=== PATIENT | female | born 1975 | race Caucasian/White ===

== ENCOUNTER 2017-07-22 18:56 | Emergency (ER) | payer OTHER, MEDICAID ==
[2017-07-22 20:36] LABS: ADD MAN DIFF? NO
[2017-07-22 20:37] LABS: BASOPHIL # 0.1 10^3/ul (0.0-0.1); BASOPHILS % 0.6 % (0.0-2.0); EOSINOPHILS # 0.3 10^3/ul (0.0-0.5); EOSINOPHILS % 2.1 % (0.0-7.0); HEMATOCRIT 38.4 % (37.0-47.0); HEMOGLOBIN 11.3 g/dl (12.0-16.0); LYMPHOCYTES # 2.7 10^3/ul (0.8-2.9); LYMPHOCYTES % 19.9 % (15.0-51.0); MEAN CORPUSCULAR HEMOGLOBIN 23.5 pg (29.0-33.0); MEAN CORPUSCULAR HGB CONC 29.4 g/dl (32.0-37.0); MEAN CORPUSCULAR VOLUME 79.8 fl (82.0-101.0); MEAN PLATELET VOLUME 11.1 fl (7.4-10.4); MONOCYTES % 7.4 % (0.0-11.0); NEUTROPHIL # 9.4 10^3/ul (1.6-7.5); NEUTROPHILS % 69.6 % (39.0-77.0); PLATELET COUNT 332 10^3/UL (140-415); RED BLOOD COUNT 4.81 10^6/ul (4.20-5.40); RED CELL DISTRIBUTION WIDTH 15.4 % (11.5-14.5)
[2017-07-22 20:37] LABS: WHITE BLOOD COUNT 13.5 10^3/ul (4.8-10.8)
[2017-07-22] MEDS: ACETAMINOPHEN 325 MG TAB PO (20:39)
[2017-07-22 20:51] LABS: ADD UMIC YES; UR ASCORBIC ACID NEGATIVE (NEGATIVE); UR BACTERIA FEW /HPF (NONE SEEN); UR BILIRUBIN (Dip) NEGATIVE (NEGATIVE); UR BLOOD (Dip) 3+ mg/dL (NEGATIVE); UR CLARITY CLOUDY (CLEAR); UR COLOR YELLOW (YELLOW); UR GLUCOSE (Dip) NEGATIVE (NEGATIVE); UR KETONES (Dip) NEGATIVE (NEGATIVE); UR LEUKOCYTE ESTERASE (Dip) 3+ Leu/ul (NEGATIVE); UR MUCUS FEW /HPF (NONE SEEN); UR NITRITE (Dip) NEGATIVE (NEGATIVE); UR RBC > 182 /HPF (0-5); UR SPECIFIC GRAVITY (Dip) 1.019 (1.003-1.030); UR SQUAMOUS EPITHELIAL CELL FEW /HPF (FEW); UR TOTAL PROTEIN (Dip) 2+ mg/dl (NEGATIVE); UR UROBILINOGEN (Dip) 1+ mg/dL (NEGATIVE); UR WBC > 182 /HPF (0-5)
[2017-07-22 20:58] LABS: PROTIME 13.3 Sec (11.9-14.9)
[2017-07-22 20:59] LABS: ALANINE AMINOTRANSFERASE 20 IU/L (13-69); ALBUMIN 3.8 g/dl (3.3-4.9); ALBUMIN/GLOBULIN RATIO 1.11; ALKALINE PHOSPHATASE 62 IU/L (42-121); ANION GAP 16 (8-16); ASPARTATE AMINO TRANSFERASE 12 IU/L (15-46); BILIRUBIN,INDIRECT 0.3 mg/dl (0-1.1); BILIRUBIN,TOTAL 0.3 mg/dl (0.2-1.3); BLOOD UREA NITROGEN 15 mg/dl (7-20); CALCIUM 9.4 mg/dl (8.4-10.2); CARBON DIOXIDE 32 mmol/L (21-31); CHLORIDE 101 mmol/L (97-110); CREATININE 0.78 mg/dl (0.44-1.00); GLUCOSE 140 mg/dl (70-220); LIPASE 56 U/L (23-300); POTASSIUM 3.7 mmol/L (3.5-5.1); SODIUM 145 mmol/L (135-144); TOTAL PROTEIN 7.2 g/dl (6.1-8.1)
[2017-07-22 21:03] LABS: PARTIAL THROMBOPLASTIN TIME 30.2 Sec (25.0-35.0)
[2017-07-22 21:10] LABS: B-TYPE NATRIURETIC PEPTIDE 50 PG/ML (0-125)
[2017-07-22 21:12] LABS: TROPONIN-I < 0.012 ng/ml (0.00-0.12)
[2017-07-22] MEDS: CEFTRIAXONE 1 GM/50 ML (PMX) 50 ML IVPB (21:55)
== END 2017-07-22 22:35 | disposition home or self-care (01) ==
LOC: FTE 18:56
DX: N39.0 Urinary tract infection, site not specified (principal); F17.210 Nicotine dependence, cigarettes, uncomplicated; R10.9 Unspecified abdominal pain
CPT/HCPCS: 36415; 71045; 80053; 81001; 81025; 83690; 83880; 84484; 85025; 85610; 85730; 93005; 96374; 99285-25

== ENCOUNTER 2017-09-20 18:14 | Emergency (ER) | payer OTHER ==
[2017-09-20] MEDS: KETOROLAC 60 MG INJ IM (20:26)
[2017-09-20] MEDS ORDERED: IBUPROFEN 600 MG TAB PO (20:30)
== END 2017-09-20 21:32 | disposition home or self-care (01) ==
LOC: FTE 18:14
DX: M25.571 Pain in right ankle and joints of right foot (principal); F17.210 Nicotine dependence, cigarettes, uncomplicated; R07.9 Chest pain, unspecified
CPT/HCPCS: 71045; 73610-RT; 73630; 96372; 99284-25

== ENCOUNTER 2017-11-14 16:14 | Emergency (ER) | payer MEDICAID, OTHER ==
[2017-11-14 18:11] LABS: ADD MAN DIFF? NO
[2017-11-14 18:14] LABS: WHITE BLOOD COUNT 9.6 10^3/ul (4.8-10.8)
[2017-11-14 18:14] LABS: BASOPHIL # 0.1 10^3/ul (0.0-0.1); BASOPHILS % 0.7 % (0.0-2.0); EOSINOPHILS # 0.4 10^3/ul (0.0-0.5); EOSINOPHILS % 4.4 % (0.0-7.0); HEMATOCRIT 39.3 % (37.0-47.0); HEMOGLOBIN 11.6 g/dl (12.0-16.0); LYMPHOCYTES # 2.5 10^3/ul (0.8-2.9); LYMPHOCYTES % 26.1 % (15.0-51.0); MEAN CORPUSCULAR HEMOGLOBIN 24.1 pg (29.0-33.0); MEAN CORPUSCULAR HGB CONC 29.5 g/dl (32.0-37.0); MEAN CORPUSCULAR VOLUME 81.7 fl (82.0-101.0); MONOCYTE # 0.9 10^3/ul (0.3-0.9); MONOCYTES % 9.5 % (0.0-11.0); NEUTROPHIL # 5.7 10^3/ul (1.6-7.5); NEUTROPHILS % 58.9 % (39.0-77.0); PLATELET COUNT 312 10^3/UL (140-415); RED BLOOD COUNT 4.81 10^6/ul (4.20-5.40); RED CELL DISTRIBUTION WIDTH 15.8 % (11.5-14.5)
[2017-11-14 18:32] LABS: ALANINE AMINOTRANSFERASE 18 IU/L (13-69); ALBUMIN 3.7 g/dl (3.3-4.9); ALBUMIN/GLOBULIN RATIO 1.05; ALKALINE PHOSPHATASE 57 IU/L (42-121); ANION GAP 10 (8-16); ASPARTATE AMINO TRANSFERASE 16 IU/L (15-46); BILIRUBIN,INDIRECT 0.1 mg/dl (0-1.1); BILIRUBIN,TOTAL 0.1 mg/dl (0.2-1.3); BLOOD UREA NITROGEN 14 mg/dl (7-20); CALCIUM 9.1 mg/dl (8.4-10.2); CARBON DIOXIDE 31 mmol/L (21-31); CHLORIDE 103 mmol/L (97-110); CREATININE 0.65 mg/dl (0.44-1.00); GLUCOSE 83 mg/dl (70-220); POTASSIUM 4.1 mmol/L (3.5-5.1); SODIUM 140 mmol/L (135-144); TOTAL PROTEIN 7.2 g/dl (6.1-8.1)
[2017-11-14 18:42] LABS: B-TYPE NATRIURETIC PEPTIDE 75 PG/ML (0-125)
[2017-11-14] MEDS: hydrOXYzine HCL 25 MG TAB PO (18:48)
[2017-11-14] MEDS: BUMETANIDE 1 MG INJ IV (18:48)
[2017-11-14 18:49] LABS: FREE THYROXINE INDEX (Calc) 2.97 ug/ml (0.65-3.89); T3 UPTAKE 30.9 % (23.5-40.5); T4 (THYROXINE) 9.6 ug/dl (5.5-11.0)
[2017-11-14 19:08] LABS: URINE BLOOD (Dip) POC Negative (NEGATIVE); URINE GLUCOSE (Dip) POC Negative (NEGATIVE); URINE KETONES (Dip) POC Negative (NEGATIVE); URINE LEUKOCYTE EST (Dip) POC Negative (NEGATIVE); URINE NITRITE (Dip) POC Negative (NEGATIVE); URINE TOTAL PROTEIN POC Negative (NEGATIVE)
[2017-11-14 19:08] LABS: URINE PH (Dip) POC 5.5 (5.0-8.5)
== END 2017-11-14 22:30 | disposition home or self-care (01) ==
LOC: E/R 22:30
DX: R21 Rash and other nonspecific skin eruption (principal); R40.2142 Coma scale, eyes open, spontaneous, at arrival to emergency department; R40.2252 Coma scale, best verbal response, oriented, at arrival to emergency department
CPT/HCPCS: 80053; 81003; 83880; 84436; 84443; 84479; 85025; 96374; 99284-25

== ENCOUNTER 2018-06-16 18:46 | Emergency (ER) | payer SELFPAY, MEDICAID ==
[2018-06-16] MEDS: FUROSEMIDE 20 MG TAB PO (21:11)
== END 2018-06-16 21:41 | disposition home or self-care (01) ==
LOC: E/R 21:41
DX: M79.89 Other specified soft tissue disorders (principal); F17.210 Nicotine dependence, cigarettes, uncomplicated
CPT/HCPCS: 71045; 93005; 99284-25

== ENCOUNTER 2018-07-15 11:07 | Inpatient (IN) | payer MEDICAID ==
[2018-07-15] MEDS ORDERED: ADENOSINE 2 ML ×2 (11:29→11:37)
[2018-07-15] MEDS: ADENOSINE 6 MG INJ IV ×3 (11:30→11:59)
[2018-07-15 12:05] LABS: ADD MAN DIFF? NO
[2018-07-15 12:21] LABS: WHITE BLOOD COUNT 9.4 10^3/ul (4.8-10.8)
[2018-07-15 12:21] LABS: BASOPHIL # 0.1 10^3/ul (0.0-0.1); BASOPHILS % 0.7 % (0.0-2.0); EOSINOPHILS # 0.2 10^3/ul (0.0-0.5); EOSINOPHILS % 1.9 % (0.0-7.0); HEMOGLOBIN 12.2 g/dl (12.0-16.0); LYMPHOCYTES # 2.8 10^3/ul (0.8-2.9); LYMPHOCYTES % 29.5 % (15.0-51.0); MEAN CORPUSCULAR HEMOGLOBIN 23.9 pg (29.0-33.0); MEAN CORPUSCULAR VOLUME 82.2 fl (82.0-101.0); MEAN PLATELET VOLUME 11.7 fl (7.4-10.4); MONOCYTE # 0.8 10^3/ul (0.3-0.9); MONOCYTES % 8.5 % (0.0-11.0); NEUTROPHIL # 5.5 10^3/ul (1.6-7.5); NEUTROPHILS % 58.8 % (39.0-77.0); PLATELET COUNT 270 10^3/UL (140-415); RED BLOOD COUNT 5.11 10^6/ul (4.20-5.40); RED CELL DISTRIBUTION WIDTH 15.7 % (11.5-14.5)
[2018-07-15 12:28] LABS: ALANINE AMINOTRANSFERASE 12 IU/L (13-69); ALBUMIN 3.9 g/dl (3.3-4.9); ALBUMIN/GLOBULIN RATIO 1.18; ALKALINE PHOSPHATASE 61 IU/L (42-121); ANION GAP 7 (5-13); ASPARTATE AMINO TRANSFERASE 13 IU/L (15-46); BILIRUBIN,INDIRECT 0.2 mg/dl (0-1.1); BILIRUBIN,TOTAL 0.2 mg/dl (0.2-1.3); BLOOD UREA NITROGEN 18 mg/dl (7-20); CALCIUM 9.2 mg/dl (8.4-10.2); CARBON DIOXIDE 32 mmol/L (21-31); CHLORIDE 101 mmol/L (97-110); CREATINE KINASE 68 IU/L (23-200); CREATININE 0.71 mg/dl (0.44-1.00); Estimated GFR > 60 mL/min (>60); GLUCOSE 103 mg/dl (70-220); LIPASE 68 U/L (23-300); POTASSIUM 4.3 mmol/L (3.5-5.1); SODIUM 140 mmol/L (135-144); TOTAL PROTEIN 7.2 g/dl (6.1-8.1)
[2018-07-15] MEDS: ASPIRIN 325 MG TAB PO (12:35)
[2018-07-15 12:36] LABS: CK INDEX 1.2; CK-MB 0.81 ng/ml (0.0-2.4)
[2018-07-15 12:41] LABS: B-TYPE NATRIURETIC PEPTIDE 98 PG/ML (0-125); TROPONIN-I < 0.012 ng/ml (0.000-0.120)
[2018-07-15 12:45] LABS: INR 0.87; PARTIAL THROMBOPLASTIN TIME 28.5 Sec (23.0-35.0); PROTIME 11.9 Sec (11.9-14.9); PT RATIO 0.9
[2018-07-15 12:48] LABS: D-DIMER 812.87 ng/ml (<460)
[2018-07-15 13:13] LABS: FREE THYROXINE INDEX (Calc) 2.42 ug/ml (0.65-3.89); T3 UPTAKE 30.2 % (23.5-40.5)
[2018-07-15] MEDS: IOHEXOL 100 ML (13:13)
[2018-07-15] MEDS: SOD CHLORIDE 0.9% 100 ML (13:13)
[2018-07-15] MEDS: IOHEXOL 350MG/ML 50 ML BTL (13:14)
[2018-07-15] MEDS ORDERED: ACETAMINOPHEN 325 MG TAB PO (13:30)
[2018-07-15] MEDS ORDERED: ONDANSETRON 4 MG INJ IV ×2 (13:30→15:00)
[2018-07-15] MEDS: METOPROLOL 25 MG TAB PO ×2 (15:39→21:17)
[2018-07-15] MEDS: DOCUSATE SODIUM 100 MG CAP PO (15:40)
[2018-07-15 16:05] LABS: CREATINE KINASE 64 IU/L (23-200)
[2018-07-15 16:19] LABS: CK INDEX 1.2; CK-MB 0.78 ng/ml (0.0-2.4); TROPONIN-I < 0.012 ng/ml (0.000-0.120)
[2018-07-15 21:17] LABS: CREATINE KINASE 51 IU/L (23-200)
[2018-07-15] MEDS: FAMOTIDINE 20 MG TAB PO (21:17)
[2018-07-15] MEDS: ZOLPIDEM 5 MG TAB PO (21:17)
[2018-07-15 21:26] LABS: CK INDEX 1.2; TROPONIN-I < 0.012 ng/ml (0.000-0.120)
[2018-07-16] MEDS: DOCUSATE SODIUM 100 MG CAP PO ×2 (03:20→14:31)
[2018-07-16 06:42] LABS: ADD MAN DIFF? NO
[2018-07-16 06:44] LABS: ABNORMAL IP MESSAGE 1; BASOPHIL # 0.1 10^3/ul (0.0-0.1); BASOPHILS % 0.8 % (0.0-2.0); EOSINOPHILS # 0.2 10^3/ul (0.0-0.5); EOSINOPHILS % 2.3 % (0.0-7.0); HEMOGLOBIN 11.6 g/dl (12.0-16.0); LYMPHOCYTES # 2.5 10^3/ul (0.8-2.9); LYMPHOCYTES % 27.8 % (15.0-51.0); MEAN CORPUSCULAR HEMOGLOBIN 23.3 pg (29.0-33.0); MEAN CORPUSCULAR HGB CONC 28.3 g/dl (32.0-37.0); MEAN CORPUSCULAR VOLUME 82.3 fl (82.0-101.0); MEAN PLATELET VOLUME 11.1 fl (7.4-10.4); MONOCYTE # 0.7 10^3/ul (0.3-0.9); MONOCYTES % 7.4 % (0.0-11.0); NEUTROPHIL # 5.4 10^3/ul (1.6-7.5); NEUTROPHILS % 61.2 % (39.0-77.0); PLATELET COUNT 256 10^3/UL (140-415); RED BLOOD COUNT 4.98 10^6/ul (4.20-5.40); RED CELL DISTRIBUTION WIDTH 15.9 % (11.5-14.5)
[2018-07-16 06:44] LABS: WHITE BLOOD COUNT 8.8 10^3/ul (4.8-10.8)
[2018-07-16 07:00] LABS: POSITIVE DIFF @See below
[2018-07-16 07:13] LABS: ANION GAP 8 (5-13); BLOOD UREA NITROGEN 18 mg/dl (7-20); CARBON DIOXIDE 29 mmol/L (21-31); CHLORIDE 103 mmol/L (97-110); Estimated GFR > 60 mL/min (>60); GLUCOSE 101 mg/dl (70-220); POTASSIUM 4.8 mmol/L (3.5-5.1); SODIUM 140 mmol/L (135-144)
[2018-07-16 07:17] LABS: ADD UMIC YES; UR ASCORBIC ACID NEGATIVE (NEGATIVE); UR BILIRUBIN (Dip) NEGATIVE (NEGATIVE); UR BLOOD (Dip) 1+ mg/dL (NEGATIVE); UR CLARITY SLIGHTLY CLOUDY (CLEAR); UR COLOR YELLOW (YELLOW); UR GLUCOSE (Dip) NEGATIVE (NEGATIVE); UR KETONES (Dip) NEGATIVE (NEGATIVE); UR LEUKOCYTE ESTERASE (Dip) TRACE Leu/ul (NEGATIVE); UR MUCUS FEW /HPF (NONE SEEN); UR NITRITE (Dip) NEGATIVE (NEGATIVE); UR RBC 3 /HPF (0-5); UR SQUAMOUS EPITHELIAL CELL FEW /HPF (FEW); UR TOTAL PROTEIN (Dip) NEGATIVE (NEGATIVE); UR UROBILINOGEN (Dip) NEGATIVE (NEGATIVE); UR WBC 7 /HPF (0-5)
[2018-07-16 07:31] LABS: AMPHETAMINE/METHAMPHETAMINE Negative (NEGATIVE); BARBITURATES Negative (NEGATIVE); BENZODIAZEPINES Negative (NEGATIVE); CANNABINOIDS Negative (NEGATIVE); COCAINE Negative (NEGATIVE); OPIATES Negative (NEGATIVE)
[2018-07-16] MEDS: FAMOTIDINE 20 MG TAB PO ×2 (08:41→20:09)
[2018-07-16] MEDS: METOPROLOL 25 MG TAB PO ×2 (08:42→20:09)
[2018-07-16] MEDS: ASPIRIN 81 MG TAB PO (08:42)
[2018-07-16] MEDS: ENOXAPARIN 40 MG/0.4 ML SYG SC (08:45)
[2018-07-16] MEDS: FUROSEMIDE 40 MG INJ IV (11:19)
[2018-07-16] MEDS: BENZONATATE 100 MG CAP PO (23:28)
[2018-07-16] MEDS ORDERED: LEVALBUTEROL (NEB) 1.25 MG/0.5 ML AMP HHN (23:30)
[2018-07-16] MEDS ORDERED: IPRATROPIUM (NEB) 0.5 MG/2.5 ML AMP HHN (23:30)
[2018-07-17] MEDS: DOCUSATE SODIUM 100 MG CAP PO (02:55)
[2018-07-17] MEDS: FUROSEMIDE 40 MG INJ IV (09:18)
[2018-07-17] MEDS: FAMOTIDINE 20 MG TAB PO (09:20)
[2018-07-17] MEDS: ASPIRIN 81 MG TAB PO (09:20)
[2018-07-17] MEDS: METOPROLOL 25 MG TAB PO (09:20)
[2018-07-17] MEDS: ENOXAPARIN 40 MG/0.4 ML SYG SC (09:38)
[2018-07-17] MEDS: ACETAMINOPHEN 325 MG TAB PO (14:53)
== END 2018-07-17 16:00 | disposition home or self-care (01) | DRG 309 ==
LOC: E/R 11:07 → TEL 13:28
DX: I47.1 Supraventricular tachycardia (principal); Z68.44 Body mass index [BMI] 60.0-69.9, adult; E66.01 Morbid (severe) obesity due to excess calories; F17.200 Nicotine dependence, unspecified, uncomplicated; G47.419 Narcolepsy without cataplexy; G47.33 Obstructive sleep apnea (adult) (pediatric); I87.8 Other specified disorders of veins; I44.5 Left posterior fascicular block; I10 Essential (primary) hypertension; R22.43 Localized swelling, mass and lump, lower limb, bilateral; R06.00 Dyspnea, unspecified
CPT/HCPCS: 71045; 71275; 80048; 80053; 80307; 81001; 82550; 82553; 83036; 83690; 83735; 83880; 84436; 84443; 84479; 84484; 85025; 85378; 85610; 85730; 93005; 93306; 93970; 94660; 96374; 99291-25; G0378

== ENCOUNTER 2018-09-05 19:12 | Emergency (ER) | payer OTHER, MEDICAID ==
[2018-09-05] MEDS: ALBUTEROL 0.5% (NEB) 2.5 MG/0.5 ML AMP INH (21:07)
[2018-09-05 21:20] LABS: ADD MAN DIFF? NO; BASOPHIL # 0.1 10^3/ul (0.0-0.1); BASOPHILS % 0.5 % (0.0-2.0); EOSINOPHILS # 0.2 10^3/ul (0.0-0.5); EOSINOPHILS % 1.7 % (0.0-7.0); HEMATOCRIT 38.2 % (37.0-47.0); HEMOGLOBIN 11.1 g/dl (12.0-16.0); LYMPHOCYTES % 20.6 % (15.0-51.0); MEAN CORPUSCULAR HEMOGLOBIN 23.8 pg (29.0-33.0); MEAN CORPUSCULAR HGB CONC 29.1 g/dl (32.0-37.0); MONOCYTE # 0.7 10^3/ul (0.3-0.9); NEUTROPHIL # 6.7 10^3/ul (1.6-7.5); NEUTROPHILS % 69.7 % (39.0-77.0); PLATELET COUNT 261 10^3/UL (140-415); RED BLOOD COUNT 4.66 10^6/ul (4.20-5.40); RED CELL DISTRIBUTION WIDTH 15.8 % (11.5-14.5)
[2018-09-05 21:20] LABS: WHITE BLOOD COUNT 9.7 10^3/ul (4.8-10.8)
[2018-09-05] MEDS: FUROSEMIDE 20 MG TAB PO (21:27)
[2018-09-05 21:37] LABS: ALANINE AMINOTRANSFERASE 23 IU/L (13-69); ALBUMIN 3.7 g/dl (3.3-4.9); ALBUMIN/GLOBULIN RATIO 1.08; ALKALINE PHOSPHATASE 65 IU/L (42-121); ANION GAP 6 (5-13); ASPARTATE AMINO TRANSFERASE 13 IU/L (15-46); BILIRUBIN,INDIRECT 0.4 mg/dl (0-1.1); BILIRUBIN,TOTAL 0.4 mg/dl (0.2-1.3); BLOOD UREA NITROGEN 13 mg/dl (7-20); CALCIUM 9.1 mg/dl (8.4-10.2); CARBON DIOXIDE 32 mmol/L (21-31); CHLORIDE 103 mmol/L (97-110); CREATININE 0.69 mg/dl (0.44-1.00); Estimated GFR > 60 mL/min (>60); GLUCOSE 94 mg/dl (70-220); LIPASE 36 U/L (23-300); POTASSIUM 3.7 mmol/L (3.5-5.1); SODIUM 141 mmol/L (135-144); TOTAL PROTEIN 7.1 g/dl (6.1-8.1)
[2018-09-05 21:41] LABS: AADO2 Arterial 16.1 mmHg (7.0-24.0); Allen Test ACCEPTAB; Arterial Base Excess 2.5 mmol/L (-3.0-3); Arterial Blood Gas Oxygen Sat 95.8 mmHG (95.0-98.0); Arterial Fraction of Oxyhgb 93.6 % (93.0-99.0); Arterial HCO3 27.7 mmol/L (22.0-26.0); Arterial MetHb 0.3 % (0.0-1.5); MODE ROOM AIR; Site Left Radial
[2018-09-05 21:51] LABS: TROPONIN-I < 0.012 ng/ml (0.000-0.120)
== END 2018-09-05 22:52 | disposition home or self-care (01) ==
LOC: E/R 22:52
DX: M17.0 Bilateral primary osteoarthritis of knee (principal); I10 Essential (primary) hypertension; E66.01 Morbid (severe) obesity due to excess calories; R05 Cough; Z87.891 Personal history of nicotine dependence
CPT/HCPCS: 36415; 36600; 71045; 80053; 82803; 83690; 84484; 85025; 93005; 94664; 99285-25